=== PATIENT | male | born 1970 | race Caucasian/White ===

== ENCOUNTER 2017-06-25 14:06 | Emergency (ER) | payer MEDICAID ==
[2017-06-25 14:33] VITALS: BP 125/56
[2017-06-25] MEDS ORDERED: Bacitracin Oint 1 GM U/D Packet TOP ONE (15:34)
--- NOTE | 2017-07-05 07:53 | EDM.PDOC ---
Scribed by Ludy Eckert 06/25/17 1548 for Roxann Burton NP ED HPI GENERAL MEDICAL PROBLEM - General Chief Complaint: Skin Complaint Stated Complaint: [id number] HAD SURGERY BLISTERS FORMING Time Seen by Provider: 06/25/17 15:05 Source of Information: Reports: Patient, RN, RN Notes Reviewed History Limitations: Reports: No Limitations - History of Present Illness INITIAL COMMENTS - FREE TEXT/NARRATIVE: Pt presents to the ER with c/o blisters on the left leg above ciera wraps. The left leg is ciera wrapped after surgery for vericose veins yesterday. The thigh was also wrapped. He states the blisters developed overnight, and he feels from the wraps being too tight. The patient has no further complaints. Left Leg Pain Score (Numeric/FACES): 8 - Related Data Allergies Allergy/AdvReac Type Severity Reaction Status Date / Time No Known Allergies Allergy Verified 01/26/17 12:00 Home Meds: Home Meds Allopurinol [Zyloprim] 100 mg PO DAILY 02/10/14 [History] Furosemide [Furosemide] 20 mg PO DAILY 03/26/16 [History] Metoprolol Tartrate [Metoprolol Tartrate] 50 mg PO DAILY 03/26/16 [History] Albuterol [Proventil HFA] 1 - 2 puff INH Q6H PRN 04/22/16 [History] Ferrous Sulfate 1 tab PO DAILY 04/22/16 [History] Fluticasone Propionate [Flonase] 2 spray INH DAILY PRN 04/22/16 [History] Hydrochlorothiazide/Olmesartan [Benicar HCT 40-25 MG] 40 mg PO DAILY 04/22/16 [ History] Cephalexin [Keflex] 500 mg PO QID 06/25/17 [History] Hydrocodone/Acetaminophen [[place] 5-325] 1 tab PO Q6H PRN 06/25/17 [History] Naproxen 500 mg PO BID 06/25/17 [History] Past Medical History HEENT History: Reports: None Cardiovascular History: Reports: Hypertension Respiratory History: Reports: Asthma Other Respiratory History: season allergies Gastrointestinal History: Reports: None Genitourinary History: Reports: None Musculoskeletal History: Reports: Gout Neurological History: Reports: None Psychiatric History: Reports: None Endocrine/Metabolic History: Reports: None Hematologic History: Reports: Anemia Immunologic History: Reports: None Oncologic (Cancer) History: Reports: None Dermatologic History: Reports: Other (See Below) Other Dermatologic History: mrsa - Infectious Disease History Infectious Disease History: Reports: Chicken Pox, Other (See Below) Other Infectious Disease History: mrsa - Past Surgical History HEENT Surgical History: Reports: None GI Surgical History: Reports: Bariatric Procedure, Other (See Below) Other GI Surgeries/Procedures: abdominal surgery Musculoskeletal Surgical History: Reports: Arthroscopic Knee, Hip Replacement, Shoulder Surgery, Other (See Below) Other Musculoskeletal Surgeries/Procedures:: ankle left, ulcer left foot Social & Family History - Tobacco Use Smoking Status *Q: Current Every Day Smoker Years of Tobacco use: 4 Packs/Tins Daily: 0.2 Used Tobacco, but Quit: Yes Month Tobacco Last Used: 2005 - Caffeine Use Caffeine Use: Reports: Energy Drinks, Soda - Alcohol Use Days Per Week of Alcohol Use: 2 Number of Drinks Per Day: 6 Total Drinks Per Week: 12 - Recreational Drug Use Recreational Drug Use: No ED ROS GENERAL - Review of Systems Review Of Systems: ROS reveals no pertinent complaints other than HPI. ED EXAM, SKIN/RASH Exam: See Below Exam Limited By: No Limitations General Appearance: Alert, WD/WN, No Apparent Distress Eye Exam: Bilateral Eye: Normal Inspection Ears: Normal External Exam, Normal Canal, Hearing Grossly Normal, Normal TMs Nose: Normal Inspection, Normal Mucosa, No Blood Throat/Mouth: Normal Inspection, Normal Lips, Normal Teeth, Normal Gums, Normal Oropharynx, Normal Voice, No Airway Compromise Head: Atraumatic, Normocephalic Neck: Normal Inspection, Supple, Non-Tender, Full Range of Motion Respiratory/Chest: No Respiratory Distress, Lungs Clear, Normal Breath Sounds, No Accessory Muscle Use, Chest Non-Tender Cardiovascular: Normal Peripheral Pulses, Regular Rate, Rhythm, No Edema, No Gallop, No JVD, No Murmur, No Rub GI/Abdominal: Normal Bowel Sounds, Soft, Non-Tender, No Organomegaly, No Distention, No Abnormal Bruit, No Mass (Male) Exam: Deferred Rectal (Males) Exam: Deferred Back Exam: Normal Inspection, Full Range of Motion, NT Extremities: Normal Inspection, Normal Range of Motion, Non-Tender, No Pedal Edema, Normal Capillary Refill Neurological: Alert, Oriented, CN II-XII Intact, Normal Cognition, Normal Gait, Normal Reflexes, No Motor/Sensory Deficits Psychiatric: Normal Affect, Normal Mood Lymphatic: No Adenopathy Course - Vital Signs Last Recorded V/S: Last Vital Signs Temp 97.4 F 06/25/17 14:32 Pulse 72 06/25/17 14:32 Resp 16 06/25/17 14:32 BP 125/56 L 06/25/17 14:32 Pulse Ox 96 06/25/17 14:32 - Orders/Labs/Meds Meds: Medications Discontinued Medications Generic Name Dose Route Start Last Admin Trade Name Jose PRN Reason Stop Dose Admin Bacitracin 1 dose 06/25/17 15:34 06/25/17 15:47 Bacitracin Oint 1 Gm TOP 06/25/17 15:35 1 dose ONETIME ONE Administration Departure - Departure Time of Disposition: 15:44 Disposition: Home, Self-Care 01 Condition: Good Clinical Impression: Blister - Discharge Information Instructions: Abrasion, [id number] Referrals: Veronica Johnson PA-C [Primary Care Provider] - Forms: ED Department Discharge Additional Instructions: Continue to wear compression wraps until directed to remove. May use over the counter antibiotic ointment to the area until healed. Follow up with your primary care facility, or vascular surgeon I have read and agree with the documentation that has been completed regarding this visit. By signing this record, I attest that the documentation was completed in my physical presence and is an accurate record of the encounter.
== END 2017-06-25 16:10 | disposition home or self-care (01) ==
LOC: DL.ED 14:06
DX: S80.822A Blister (nonthermal), left lower leg, initial encounter (principal); J45.909 Unspecified asthma, uncomplicated; F17.210 Nicotine dependence, cigarettes, uncomplicated; Z79.899 Other long term (current) drug therapy; X58.XXXA Exposure to other specified factors, initial encounter
CPT/HCPCS: 99282

== ENCOUNTER 2020-11-04 09:38 | Emergency (ER) | payer MEDICAID ==
[2020-11-04 11:14] VITALS: PULSE 75
--- NOTE | 2020-11-04 11:49 | EDM.PDOC ---
<Ruchi Payne - Last Filed: 11/04/20 12:05> ED HPI GENERAL MEDICAL PROBLEM - General Chief Complaint: Wound Recheck Stated Complaint: ULCER ON LEFT LEG OPEN/BLEEDING?? Time Seen by Provider: 11/04/20 11:30 Source of Information: Reports: Patient History Limitations: Reports: No Limitations - History of Present Illness INITIAL COMMENTS - FREE TEXT/NARRATIVE: Patient is a 50 yo male, history of venous stasis ulcer, who presents to the ED with c/o of bleeding from the ulcer on his lower left leg. He reports he was in the shower this morning when he noticed there was bleeding from the ulcer. He was able to stop the bleeding shortly after it began with mild pressure. The patient states he has had this ulcer for the past 5-6 years with no new changes. He denies fever, chills, nausea, body aches, cough, erythema, or changes in bowel habits. He denies increased erythema, swelling, discharge, or pain at the ulcer site. He used to follow up with [facility] in [facility] in [place]; however, he has not had an appointment with her for over a year now. 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) - Related Data Allergies Allergy/AdvReac Type Severity Reaction Status Date / Time No Known Allergies Allergy Verified 11/04/20 11:18 Home Meds: Home Meds allopurinoL [Zyloprim] 100 mg PO DAILY 02/10/14 [History] Furosemide 20 mg PO DAILY 03/26/16 [History] Metoprolol Tartrate 50 mg PO DAILY 03/26/16 [History] Albuterol [Proventil HFA] 1 - 2 puff INH Q6H PRN 04/22/16 [History] Ferrous Sulfate 1 tab PO DAILY 04/22/16 [History] Fluticasone Propionate [Flonase] 2 spray INH DAILY PRN 04/22/16 [History] Hydrochlorothiazide/Olmesartan [Benicar HCT 40-25 MG] 40 mg PO DAILY 04/22/16 [History] Ascorbic Acid [Vitamin C] 500 mg PO DAILY 08/28/18 [History] Past Medical History HEENT History: Reports: None Cardiovascular History: Reports: Hypertension Respiratory History: Reports: Asthma Other Respiratory History: season allergies Gastrointestinal History: Reports: None Genitourinary History: Reports: None Musculoskeletal History: Reports: Gout Neurological History: Reports: None Psychiatric History: Reports: None Endocrine/Metabolic History: Reports: None, Obesity/BMI 30+ Hematologic History: Reports: Anemia Immunologic History: Reports: None Oncologic (Cancer) History: Reports: None Dermatologic History: Reports: Other (See Below) Other Dermatologic History: mrsa - Infectious Disease History Infectious Disease History: Reports: Chicken Pox, MRSA Other Infectious Disease History: mrsa - Past Surgical History HEENT Surgical History: Reports: None GI Surgical History: Reports: Bariatric Procedure, Other (See Below) Other GI Surgeries/Procedures: abdominal surgery Musculoskeletal Surgical History: Reports: Arthroscopic Knee, Hip Replacement, Shoulder Surgery, Other (See Below) Other Musculoskeletal Surgeries/Procedures:: ankle left, ulcer left foot Social & Family History - Family History Family Medical History: No Pertinent Family History - Tobacco Use Tobacco Use Status *Q: Current Every Day Tobacco User Years of Tobacco use: 20 Packs/Tins Daily: 0.5 Used Tobacco, but Quit: No - Caffeine Use Caffeine Use: Reports: Coffee - Recreational Drug Use Recreational Drug Use: Yes Recreational Drug Type: Reports: Marijuana/Hashish Recreational Drug Use Frequency: Daily ED ROS GENERAL - Review of Systems Review Of Systems: Comprehensive ROS is negative, except as noted in HPI. ED EXAM, SKIN/RASH Exam: See Below Exam Limited By: No Limitations General Appearance: Alert, WD/WN, No Apparent Distress Head: Atraumatic, Normocephalic Neck: Normal Inspection, Supple, Non-Tender, Full Range of Motion Respiratory/Chest: No Respiratory Distress, Lungs Clear, Normal Breath Sounds, No Accessory Muscle Use, Chest Non-Tender Cardiovascular: Normal Peripheral Pulses, Regular Rate, Rhythm, No Edema, No Gallop, No JVD, No Murmur, No Rub Peripheral Pulses: 3+: Posterior Tibial (L), Posterior Tibial (R) Extremities: Normal Inspection, Normal Range of Motion, Non-Tender, No Pedal Edema, Normal Capillary Refill Neurological: Alert, Oriented, CN II-XII Intact, Normal Cognition, Normal Gait, Normal Reflexes, No Motor/Sensory Deficits Psychiatric: Normal Affect, Normal Mood Skin: Warm, No Rash, Wound/Incision (3 cm x 2.8 cm venous stasis ulcer localized to the medial aspect of the lower left extremity; not actively bleeding ). No: Erythema, Increased Warmth, Rash Location, Skin: Lower Extremity, Left Associated features: No: Warmth, Tenderness, Swelling, Induration Lymphatic: No Adenopathy Departure - Departure Time of Disposition: 11:49 Disposition: Home, Self-Care 01 Condition: Fair Clinical Impression: Venous stasis ulcer Qualifiers: Venous stasis ulcer site: other part of lower leg Varicose vein presence: with varicose veins Laterality: left Non-pressure ulcer stage: limited to breakdown of skin Qualified Code(s): I83.028 - Varicose veins of left lower extremity with ulcer other part of lower leg - Discharge Information *PRESCRIPTION DRUG MONITORING PROGRAM REVIEWED*: Not Applicable *COPY OF PRESCRIPTION DRUG MONITORING REPORT IN PATIENT AGUSTIN: Not Applicable Instructions: Venous Ulcer Forms: ED Department Discharge Care Plan Goals: -Patient needs to keep the ulcer clean. May keep open to air or apply dressing to prevent rubbing against clothing. -Monitor for signs of infection including fever, chills, body aches, purulent drainage, erythema, or fluctuance around ulcer. -Strongly recommended the patient make an appointment with wound care in [place]. -Follow up in the clinic with PCP or ED if symptoms worsen or if new symptoms develop. Sepsis Event Note (ED) - Evaluation Sepsis Screening Result: No Definite Risk <Rubén Adam - Last Filed: 11/05/20 07:10> Course - Vital Signs Last Recorded V/S: Last Vital Signs Temp 36.3 C 11/04/20 11:13 Pulse 75 11/04/20 11:13 Resp 20 11/04/20 11:13 BP 119/74 11/04/20 11:47 Pulse Ox 95 11/04/20 11:13 - Re-Assessments/Exams Free Text/Narrative Re-Assessment/Exam: 11/05/20 07:10 I have examined the patient. I have discussed findings and treatment plan with the PA student. I agree with the assessment and plan in the following students note.
[2020-11-04 11:59] VITALS: BP 119/74
== END 2020-11-04 11:58 | disposition home or self-care (01) ==
LOC: DL.ED 09:38
DX: I83.028 Varicose veins of left lower extremity with ulcer other part of lower leg (principal); L97.821 Non-pressure chronic ulcer of other part of left lower leg limited to breakdown of skin; I10 Essential (primary) hypertension; J45.909 Unspecified asthma, uncomplicated; D64.9 Anemia, unspecified; E66.9 Obesity, unspecified; Z68.44 Body mass index [BMI] 60.0-69.9, adult; Z72.0 Tobacco use; Z79.899 Other long term (current) drug therapy
CPT/HCPCS: 99282; 99283

== ENCOUNTER 2024-11-15 14:01 | Emergency (ER) | payer BC, MEDICAID ==
[2024-11-15] MEDS ORDERED: Sodium Chloride 0.9% 10 ML Syringe FLUSH PRN (14:32)
[2024-11-15] MEDS: Albuterol/Ipratropium 3.0-0.5 MG/3 ML Neb Soln NEB ONE (14:43)
[2024-11-15 15:08] LABS: BASOPHILS PERCENT AUTO 0.1 % (0.0-1.0); HEMATOCRIT 36.9 % (40.0-54.0); HEMOGLOBIN 10.5 g/dL (14.0-18.0); LYMPHOCYTES PERCENT AUTO 4.2 % (20.5-50.1); MEAN CORPUSCULAR HGB CONC 28.5 g/dL (33.0-35.0); MEAN CORPUSCULAR VOLUME 80.9 fL (80-100); MONOCYTES PERCENT AUTO 6.9 % (2-8); NEUTROPHILS PERCENT AUTO 88.8 % (42.2-75.2); PLATELET COUNT,PLT 240 10^3/uL (150-450); RED BLOOD CELL COUNT 4.56 10^6/uL (4.6-6.2); WHITE BLOOD CELL COUNT,WBC 10.7 10^3/uL (5.0-10.0)
[2024-11-15] MEDS: Albuterol 0.083% 2.5 MG/3 ML Neb Soln NEB ONE (15:10)
[2024-11-15] MEDS: Magnesium Sulf/Wat 2 GM/50 mL 2 GM in Premix Bag 1 BAG IV ONE ×2 (15:11→15:46)
[2024-11-15 15:39] LABS: ALBUMIN 3.1 g/dL (3.4-5.0); ANION GAP 10.6 mEq/L (7-13); BILIRUBIN TOTAL 0.2 mg/dL (0.2-1.0); BUN/CREATININE RATIO 21.6 (No establ ref range); C-REACTIVE PROTEIN 1.22 ng/dL (<=0.50); CALCIUM 9.1 mg/dL (8.5-10.1); CREATININE 0.97 mg/dL (0.70-1.30); EST CRCL DRUG DOSING (CG) 91.98 mL/min; POTASSIUM,K 4.6 mmol/L (3.5-5.1); PROTEIN TOTAL,TP 7.4 g/dL (6.4-8.2)
[2024-11-15 15:44] LABS: A/G RATIO 0.72; LACTIC ACID 2.1 mmol/L (0.4-2.0)
[2024-11-15 15:48] LABS: B-TYPE NATRIURETIC PEPTIDE,BNP 175 pg/ml (0-100)
[2024-11-15 16:24] VITALS: BP 125/66; PULSE 99
== END 2024-11-15 17:40 | disposition home or self-care (01) ==
LOC: DL.ED 14:01
DX: J12.1 Respiratory syncytial virus pneumonia (principal); J45.909 Unspecified asthma, uncomplicated; I10 Essential (primary) hypertension; E11.9 Type 2 diabetes mellitus without complications; Z79.899 Other long term (current) drug therapy; Z79.51 Long term (current) use of inhaled steroids
CPT/HCPCS: 36415; 71046; 80053; 83605; 83880; 84484; 85025; 86140; 87040; 93005; 94640; 96365; 99285; J3475; J7613; J7620; A9270-GY